=== PATIENT | female | born 1945 | race Caucasian/White ===

== ENCOUNTER 2016-09-13 15:34 | Inpatient (IN) | payer MEDICARE, OTHER ==
[~2016-09-13] VITALS: Ht 162.6 cm; Wt 42.6 kg
[~2016-09-13 15:34] MED LIST: ADVAIR 250-501 EACH INH; ASPIR 8181 MG ORAL; ATENOLOL50 MG ORAL; ATORVASTATIN CA20 MG ORAL; CARDIZEM CD240 MG ORAL; GAS RELIEF 8080 MG PO; PROAIR HFA8.5 GM INH; SENNA8.6 M3 PO; SPIRIVA18 MCG INH; ZITHROMAX250 MG ORAL
[2016-09-13] MEDS ORDERED: Azithromycin 500 MG in NS 275 ML IV ONE (16:00)
[2016-09-13] MEDS: Albuterol ud Inhalation HHN SCH ×3 (16:00→16:30)
[2016-09-13] MEDS ORDERED: Terbutaline 1mg/ml Inj SUBQ ONE (16:00)
[2016-09-13] MEDS: Ipratropium 0.02% Inh Soln 2.5ml UD HHN SCH ×3 (16:00→16:30)
[2016-09-13] MEDS ORDERED: Solu-MEDROL 125mg Inj IVP ONE (16:00)
--- NOTE | 2016-09-13 16:01 | Emergency Room Report ---
History of Present Illness General Chief Complaint: Chest Pain Source: Patient, Medical Record Present Illness HPI 71YOF walk-in with 2-3 days progressive SOB with chest tightness, productive sputum, no improvement with home nebs, breathing machine. States very weak because she cant eat because of SOB. HPI otherwise limited by severity of patient's condition. Allergies: Coded Allergies: PENICILLINS (Unverified Allergy, Intermediate, Hives, 08/05/15) Patient History Past Medical History: HTN, COPD, other - HLD Past Surgical History: none Pertinent Family History: none Social History: Denies: alcohol use, drug use, smoking Now: No Immunizations: UTD Reviewed Nursing Documentation: PMH: Agreed, PSxH: Agreed Nursing Documentation-PMH Past Medical History: No History, Except For Hx Hypertension: Yes Hx Asthma: Yes Hx COPD: Yes - emphesema Hx Cancer: No Hx Gastrointestinal Problems: No Hx Neurological Problems: No Physical Exam Vital Signs Date Time Temp Pulse Resp B/P Pulse Ox O2 Delivery O2 Flow Rate FiO2 09/13/16 15:39 98.4 75 20 149/77 70 Room Air Procedures Critical Care Time Critical Care Time CC time 45 minutes Care for a 71YOF with known COPD with 2-3 days SOB. Hypoxic to 70% in triage DDx includes COPD exac, URI, PNA Patient is now alert and oriented, atraumatic Comprehensive physical exam completed, poor respiratory effort, decreased breath sounds, rhonchi, wheezing Immediately placed on BIPAP with nebs, solumedrol, Iv MG, terbutaline Empiric Abx given Might require intubation EKG reveals NSR Physician spent 45 minutes of direct critical care time monitoring patient's respiratory, cardiac and neurological status, reassessment, review of imaging, labs and discussion with attending hospitalist. Does not include procedures Medical Decision Making Medicare Attestation I Taran Chew MD hereby attest that the medical record entry for date of service, 05/11/16 accurately reflects signatures/notations that I made in my capacity as MD when I treated/diagnosed the above listed Medicare beneficiary. I attest that this information is true, accurate and complete to the best of my knowledge. I understand that any falsification, omission, or concealment of material fact may subject me to administrative, civil, or criminal liability. This patient warrants hospital admission for extreme of age and has a condition that cannot be treated as outpatient. Diagnostic Impression: Primary Impression: COPD with acute exacerbation Additional Impression: PNA (pneumonia) Qualified Codes: J18.9 - Pneumonia, unspecified organism ER Course Labs: Leuks 16 k. H&H stable. Elevated BNP. CXR: no obvious PNA Blood Cx sent Abx given Patient significant improved on Bipap with meds Endorsed to Dr Madison at 549pm for [facility] admission EKG Diagnostic Results Rate: normal, other - biatrial enlargemnt Rhythm: NSR ST Segments: no acute changes ASA given to the pt in ED: No Rhythm Strip Diag. Results EP Interpretation: yes Rate: 73 Rhythm: NSR, no PVC's, no ectopy Chest X-Ray Diagnostic Results EP Interpretation: Yes Findings: no consolidation, no effusion, no pneumothorax, no acute cardiopulmonary disease Number of Views: 1 Last Vital Signs Date Time Temp Pulse Resp B/P Pulse Ox O2 Delivery O2 Flow Rate FiO2 09/13/16 15:39 98.4 75 20 149/77 70 Room Air Status: improved Disposition: ADMITTED INPATIENT Condition: Critical TARAN CHEW M.D. Sep 13, 2016 16:01
[2016-09-13 16:11] VITALS: BP 149/77
[2016-09-13] MEDS ORDERED: Azithromycin Inj IV ONE (16:15)
[2016-09-13 16:24] LABS: BASOPHILS % (AUTO) 0.9 % (0.0-2.0); EOSINOPHILS % (AUTO) 0.1 % (0.0-3.0); LYMPHOCYTES % (AUTO) 6.2 % (20.0-45.0); MEAN CORPUSCULAR HEMOGLOBIN 31.9 PG (27.0-31.0); MEAN CORPUSCULAR VOLUME 100 FL (80-99); MEAN PLATELET VOLUME 5.7 FL (6.5-10.1); MONOCYTES % (AUTO) 10.9 % (1.0-10.0); NEUTROPHILS % (AUTO) 81.8 % (45.0-75.0); PLATELET COUNT 321 K/UL (150-450); RED BLOOD COUNT 4.34 M/UL (4.20-5.40); RED CELL DISTRIBUTION WIDTH 15.2 % (11.6-14.8)
[2016-09-13 16:40] LABS: ALANINE AMINOTRANSFERASE 22 U/L (3-33); ALBUMIN/GLOBULIN RATIO 0.8 (1.0-2.7); ANION GAP 16 (5-15); ASPARTATE AMINO TRANSFERASE 30 U/L (5-40); CALCIUM 9.9 mg/dL (8.6-10.2); CARBON DIOXIDE 28 mEQ/L (20-30); CHLORIDE 89 mEQ/L (98-107); CREATININE 0.8 mg/dL (0.5-0.9); HEMOLYSIS 47; SODIUM 133 mEQ/L (135-145); TOTAL PROTEIN 8.1 g/dL (6.6-8.7)
[2016-09-13 16:49] LABS: TROPONIN I < 0.30 ng/mL (<=0.30)
[2016-09-13 16:52] LABS: POTASSIUM 5.1 mEQ/L (3.4-4.9)
[2016-09-13] MEDS ORDERED: cefTRIAXone 1 GM in NS 55 ML IVPB ONE (17:00)
[2016-09-13 17:03] LABS: CKMB 2.4 ng/mL (< 3.8)
[2016-09-13 18:31] VITALS: BP 139/89
[2016-09-13] MEDS: DuoNeb 0.5-3(2.5)mg/3ml neb HHN SCH ×3 (19:00→23:33)
[2016-09-13] MEDS ORDERED: ACETAMINOPHEN120 MG ORAL (19:09)
[2016-09-13] MEDS ORDERED: XANAX0.5 MG ORAL (19:09)
[2016-09-13] MEDS: Atorvastatin 20mg tab ORAL SCH (22:07)
[2016-09-14] VITALS: BP_SYST 118; BP_SYST 125; BP_DIAS 49; BP_DIAS 64
[2016-09-14] MEDS: Solu-MEDROL 40mg Inj IVP SCH ×3 (00:19→15:49)
[2016-09-14] MEDS: DuoNeb 0.5-3(2.5)mg/3ml neb HHN SCH ×6 (03:54→22:38)
[2016-09-14 04:00] VITALS: BP 143/79
[2016-09-14] MEDS ORDERED: Solu-MEDROL 40mg Inj IVP SCH (06:00)
[2016-09-14 08:00] VITALS: BP 125/68
[2016-09-14] MEDS: Diltiazem CD 240mg cap ORAL SCH (08:12)
[2016-09-14] MEDS: Aspirin EC 81mg tab ORAL SCH (08:13)
[2016-09-14 08:48] LABS: MEAN CORPUSCULAR HGB CONC 30.5 G/DL (32.0-36.0); MEAN CORPUSCULAR VOLUME 98 FL (80-99); MEAN PLATELET VOLUME 5.8 FL (6.5-10.1); PLATELET COUNT 363 K/UL (150-450); RED BLOOD COUNT 4.31 M/UL (4.20-5.40); RED CELL DISTRIBUTION WIDTH 14.9 % (11.6-14.8); WHITE BLOOD COUNT 9.2 K/UL (4.8-10.8)
[2016-09-14 09:04] LABS: ANION GAP 13 (5-15); CALCIUM 9.6 mg/dL (8.6-10.2); CARBON DIOXIDE 31 mEQ/L (20-30); CHLORIDE 91 mEQ/L (98-107); HEMOLYSIS 0; MAGNESIUM 2.3 mg/dL (1.7-2.5); POTASSIUM 4.9 mEQ/L (3.4-4.9); SODIUM 135 mEQ/L (135-145)
[2016-09-14 09:26] LABS: BAND NEUTROPHILS % (MANUAL) 0 % (0-8); BASOPHILS % (MANUAL) 0 % (0-2); EOSINOPHILS % (MANUAL) 0 % (0-3); LYMPHOCYTES % (MANUAL) 5 % (20-45); NEUTROPHILS % (MANUAL) 92 % (45-75); PLATELET ESTIMATE ADEQUATE; PLATELET MORPHOLOGY NORMAL; TOTAL CELLS COUNTED 100
[2016-09-14 09:27] LABS: ANISOCYTOSIS 1+; HYPOCHROMASIA 1+
[2016-09-14] MEDS: Acetaminophen 500mg (ES) tab ORAL PRN ×2 (09:30→21:29)
[2016-09-14] MEDS ORDERED: NS 275ml ONE (10:15)
[2016-09-14] MEDS ORDERED: Tubing IV Secondary IV ONE (10:15)
[2016-09-14 12:00] VITALS: BP 143/79
--- NOTE | 2016-09-14 12:11 | Diagnostic Imaging Report ---
Indications: Shortness of breath Technique: Portable AP chest Findings: Comparison: 08/05/2015 Lungs are symmetrically hyperinflated but clear. Persistent blunting of the costophrenic angles likely secondary to diaphragmatic flattening. Cardiac silhouette remains enlarged. Central pulmonary arteries remain enlarged. Peripheral pulmonary vasculature remains within normal limits. Aortic arch calcification, bilateral breast implants again noted. IMPRESSION: No evidence of acute cardiopulmonary disease, unchanged Stable chronic changes as described including COPD
[2016-09-14] MEDS: ALPRAZolam 0.25mg tab ORAL PRN ×2 (12:30→21:29)
--- NOTE | 2016-09-14 13:28 | History & Physical ---
History and Physical History & Physicial dict COPD exac resp failure TARAN GILBERT Sep 14, 2016 13:28
[2016-09-14] MEDS: FLUoxetine 10mg cap ORAL SCH (14:09)
[2016-09-14 16:00] VITALS: BP 119/65
--- NOTE | 2016-09-14 18:48 | History and Physical Report ---
DATE OF ADMISSION: 09/13/2016 HISTORY OF PRESENT ILLNESS: The patient is a very pleasant 71-year-old woman, who came to the emergency department from home because of increasing shortness of breath and cough with yellow sputum. She had no high fever. She was evaluated and found to have chronic obstructive pulmonary disease exacerbation and pneumonia. Admission was arranged. The patient continues to smoke four to five cigarettes per day. She smoked for most of her adult life. She is aware that she has emphysema. PAST MEDICAL HISTORY: Emphysema, hypertension, hyperlipidemia, depression, anxiety, and possible asthma. She has no history of cancer. MEDICATIONS: Reviewed and reconciled. ALLERGIES: Allergy to penicillin. REVIEW OF SYSTEMS: Otherwise unremarkable. PHYSICAL EXAMINATION: GENERAL: The patient is alert and appears mildly short of breath. VITAL SIGNS: Her room air saturation is 70% when she presented, but now much improved on oxygen. The other vital signs are normal. HEENT: The head is normocephalic. She looks malnourished and chronically ill. NECK: No jugular venous distention. CHEST: Decreased breath sounds. CARDIAC: Rhythm is regular. ABDOMEN: Soft and nontender. EXTREMITIES: No edema. LABORATORY DATA: Laboratory studies show potassium is elevated at 5.1. Troponin is negative. Natriuretic peptide is elevated at 3500. Blood sugar 149. White count 16,000. Platelets are normal. Hemoglobin is 13.8. A chest x-ray shows chronic changes of chronic obstructive pulmonary disease with some blunting of the costophrenic angles and hyperinflation. There is no acute infiltrate. IMPRESSION: 1. Chronic obstructive pulmonary disease exacerbation. 2. Acute and chronic respiratory failure, hypoxic type. 3. Hypertension. 4. Hyperlipidemia. 5. Depression and anxiety. PLAN: The patient will be treated with antibiotic steroids and bronchodilators. She was on BiPAP overnight, but has improved and is on oxygen at this time. As her condition stabilizes, we will change to oral medications and plan for discharge home. I advised her not to smoke any more. Murali Madison M.D. DR: FRANCY JOB#: [id number] CC: Murali Madison M.D.; Fax#: [phone] [facility]
[2016-09-14 20:53] VITALS: BP 133/65
[2016-09-14] MEDS: Atorvastatin 20mg tab ORAL SCH (21:28)
[2016-09-15] VITALS: BP 117/68
[2016-09-15] MEDS: DuoNeb 0.5-3(2.5)mg/3ml neb HHN SCH ×6 (03:36→23:00)
[2016-09-15 04:00] VITALS: BP 125/69
[2016-09-15 05:17] LABS: MEAN CORPUSCULAR HEMOGLOBIN 30.5 PG (27.0-31.0); MEAN CORPUSCULAR VOLUME 99 FL (80-99); MEAN PLATELET VOLUME 5.8 FL (6.5-10.1); PLATELET COUNT 351 K/UL (150-450); RED BLOOD COUNT 3.87 M/UL (4.20-5.40); RED CELL DISTRIBUTION WIDTH 15.1 % (11.6-14.8); WHITE BLOOD COUNT 14.5 K/UL (4.8-10.8)
[2016-09-15 05:36] LABS: ANION GAP 10 (5-15); CALCIUM 9.1 mg/dL (8.6-10.2); CARBON DIOXIDE 28 mEQ/L (20-30); CHLORIDE 96 mEQ/L (98-107); CREATININE 0.9 mg/dL (0.5-0.9); HEMOLYSIS 2; POTASSIUM 5.3 mEQ/L (3.4-4.9); SODIUM 134 mEQ/L (135-145)
[2016-09-15 08:00] VITALS: BP 127/73
[2016-09-15 08:00] LABS: BAND NEUTROPHILS % (MANUAL) 1 % (0-8); BASOPHILS % (MANUAL) 0 % (0-2); EOSINOPHILS % (MANUAL) 0 % (0-3); LYMPHOCYTES % (MANUAL) 2 % (20-45); NEUTROPHILS % (MANUAL) 94 % (45-75); PLATELET ESTIMATE ADEQUATE; PLATELET MORPHOLOGY NORMAL; TOTAL CELLS COUNTED 100
[2016-09-15 08:01] LABS: ANISOCYTOSIS 1+
[2016-09-15] MEDS: Solu-MEDROL 40mg Inj IVP SCH ×2 (08:27)
[2016-09-15] MEDS: Aspirin EC 81mg tab ORAL SCH (08:27)
[2016-09-15] MEDS: FLUoxetine 10mg cap ORAL SCH (08:27)
[2016-09-15] MEDS: Diltiazem CD 240mg cap ORAL SCH (08:38)
[2016-09-15 12:00] VITALS: BP 135/80
--- NOTE | 2016-09-15 12:22 | Diagnostic Imaging Report ---
Indication: Dyspnea Technique: One view of the chest Comparison: 09/13/2016 Findings: Lungs are slightly hyperinflated. There linear markings at the left lung base may reflect some scarring or atelectasis. Blunting of the left costophrenic sulcus is probably on the basis of chronic scarring, but small effusion not completely excludable. The lungs and pleural spaces otherwise clear. Again demonstrated are bilateral calcified breast implants. Impression: Doubt acute process. Small left pleural effusion cannot be completely ruled out COPD changes Other findings as noted
--- NOTE | 2016-09-15 12:40 | Pulmonology Progress Note ---
Assessment/Plan Assessment/Plan 1. Chronic obstructive pulmonary disease exacerbation. 2. Acute and chronic respiratory failure, hypoxic type. 3. Hypertension. 4. Hyperlipidemia. 5. Depression and anxiety. less SOB, feels better no distress dc tele ambulate po steroids dc plan tomorrow Subjective Respiratory: Reports: productive cough Allergies: Coded Allergies: PENICILLINS (Unverified Allergy, Intermediate, Hives, 08/05/15) Objective Last 24 Hour Vital Signs Date Time Temp Pulse Resp B/P Pulse Ox O2 Delivery O2 Flow Rate FiO2 09/15/16 12:00 97.3 80 22 135/80 95 Nasal Cannula 2.0 09/15/16 11:13 79 16 95 Nasal Cannula 2.0 28 09/15/16 11:08 78 16 95 Nasal Cannula 2.0 28 09/15/16 08:38 89 127/73 09/15/16 08:37 89 127/73 09/15/16 08:00 92 09/15/16 08:00 97.3 89 20 127/73 91 Nasal Cannula 2.0 09/15/16 07:20 77 16 96 Nasal Cannula 2.0 28 09/15/16 07:15 Nasal Cannula 2.0 28 09/15/16 07:15 76 16 96 Nasal Cannula 2.0 28 09/15/16 07:15 96 Nasal Cannula 2.0 28 09/15/16 04:07 77 09/15/16 04:00 97.7 70 20 125/69 98 Nasal Cannula 3.0 09/15/16 03:52 81 20 96 Nasal Cannula 2.0 28 09/15/16 03:36 79 16 95 Nasal Cannula 2.0 28 09/15/16 00:00 98.0 74 20 117/68 98 Nasal Cannula 3.0 09/14/16 23:53 81 09/14/16 22:44 87 20 97 Nasal Cannula 2.0 28 09/14/16 22:38 85 16 94 Nasal Cannula 2.0 28 09/14/16 22:28 97.7 09/14/16 20:53 97.7 83 20 133/65 92 Nasal Cannula 3.0 09/14/16 20:01 83 09/14/16 19:27 85 20 96 Nasal Cannula 2.0 28 09/14/16 19:07 Nasal Cannula 2.0 28 09/14/16 19:07 80 16 93 Nasal Cannula 2.0 28 09/14/16 19:07 93 Nasal Cannula 2.0 28 09/14/16 16:00 65 09/14/16 16:00 97.7 67 20 119/65 94 Nasal Cannula 2.0 09/14/16 15:10 76 16 95 Nasal Cannula 2.0 28 09/14/16 15:10 80 20 96 Nasal Cannula 2.0 28 Intake and Output 09/14/16 09/15/16 19:00 07:00 Intake Total 1420 ml 250 ml Balance 1420 ml 250 ml Intake Oral 1320 ml 250 ml IV Total 100 ml # Voids 4 5 General Appearance: no acute distress Respiratory/Chest: lungs clear, decreased breath sounds Cardiovascular: normal rate Microbiology Date/Time Source Procedure Growth Status 09/13/16 16:00 Blood Blood Culture - Preliminary NO GROWTH AFTER 24 HOURS Resulted 09/13/16 15:45 Blood Blood Culture - Preliminary NO GROWTH AFTER 24 HOURS Resulted Laboratory Tests 09/15/16 03:55: White Blood Count 14.5#H, Red Blood Count 3.87L, Hemoglobin 11.8L, Hematocrit 38.1, Mean Corpuscular Volume 99, Mean Corpuscular Hemoglobin 30.5, Mean Corpuscular Hemoglobin Concent 31.0L, Red Cell Distribution Width 15.1H, Platelet Count 351, Mean Platelet Volume 5.8L, Neutrophils (%) (Auto) , Lymphocytes (%) (Auto) , Monocytes (%) (Auto) , Eosinophils (%) (Auto) , Basophils (%) (Auto) , Differential Total Cells Counted 100, Neutrophils % ( Manual) 94H, Lymphocytes % (Manual) 2L, Monocytes % (Manual) 3, Eosinophils % ( Manual) 0, Basophils % (Manual) 0, Band Neutrophils 1, Platelet Estimate Adequate, Platelet Morphology Normal, Anisocytosis 1+, Sodium Level 134L, Potassium Level 5.3H, Chloride Level 96L, Carbon Dioxide Level 28, Anion Gap 10 , Blood Urea Nitrogen 41H, Creatinine 0.9, Estimat Glomerular Filtration Rate , Glucose Level 141H, Calcium Level 9.1 Current Medications Medications (Trade) Dose Ordered Sig/Sandeep Route PRN Reason Start Time Stop Time Status Last Admin Dose Admin Acetaminophen (Tylenol) 500 mg Q4H PRN ORAL Mild Pain/Temp > 100.5 09/13/16 19:00 10/13/16 18:59 09/14/16 21:29 Albuterol/ Ipratropium 3 ml 3 ml Q4HRT HHN 09/13/16 19:00 09/18/16 18:59 09/15/16 11:08 Alprazolam (Xanax) 0.25 mg Q6H PRN ORAL For Anxiety 09/14/16 12:30 09/21/16 12:29 09/14/16 21:29 Aspirin (Ecotrin) 81 mg DAILY ORAL 09/14/16 09:00 10/14/16 08:59 09/15/16 08:27 Atenolol (Tenormin) 50 mg DAILY ORAL 09/14/16 09:00 10/14/16 08:59 09/15/16 08:37 Atorvastatin Calcium (Lipitor) 20 mg BEDTIME ORAL 09/13/16 21:00 10/13/16 20:59 09/14/16 21:28 Ceftriaxone Sodium/Sodium Chloride (Rocephin/Sodium Chloride) 100 ml @ 220.049 mls/hr Q24H IVPB 09/14/16 09:00 09/21/16 08:59 09/15/16 08:28 Diltiazem HCl (Cardizem CD) 240 mg DAILY ORAL 09/14/16 09:00 10/14/16 08:59 09/15/16 08:38 Fluoxetine HCl (PROzac) 10 mg DAILY ORAL 09/14/16 12:00 10/14/16 11:59 09/15/16 08:27 Methylprednisolone Sodium Succinate (Solu-MEDROL) 40 mg Q8H IVP 09/14/16 00:00 10/14/16 00:00 09/15/16 08:27 Nicotine (Nicoderm) 1 patch Q24H TDERMAL 09/14/16 12:00 10/14/16 11:59 09/15/16 12:05 TARAN GILBERT Sep 15, 2016 12:40
[2016-09-15] MEDS: ALPRAZolam 0.25mg tab ORAL PRN ×2 (14:37→21:58)
[2016-09-15] MEDS: Acetaminophen 500mg (ES) tab ORAL PRN ×2 (14:39→21:58)
[2016-09-15] MEDS ORDERED: Artificial Tears 1.4% Op Soln BOTH EYES PRN (15:45)
[2016-09-15 16:00] VITALS: BP 125/69
[2016-09-15] MEDS ORDERED: PredniSONE 20mg tab ORAL SCH (18:00)
[2016-09-15 20:00] VITALS: BP 125/102
[2016-09-15] MEDS: Atorvastatin 20mg tab ORAL SCH (20:36)
[2016-09-15] MEDS ORDERED: Acetaminophen 500mg (ES) tab ORAL PRN (23:00)
[2016-09-16] MEDS ORDERED: ALPRAZolam 0.25mg tab ORAL PRN (00:30)
[2016-09-16] MEDS: DuoNeb 0.5-3(2.5)mg/3ml neb HHN SCH ×2 (03:00→07:00)
[2016-09-16 05:08] LABS: MEAN CORPUSCULAR HEMOGLOBIN 30.2 PG (27.0-31.0); MEAN CORPUSCULAR HGB CONC 30.9 G/DL (32.0-36.0); MEAN CORPUSCULAR VOLUME 98 FL (80-99); MEAN PLATELET VOLUME 5.9 FL (6.5-10.1); PLATELET COUNT 348 K/UL (150-450); RED BLOOD COUNT 4.04 M/UL (4.20-5.40); RED CELL DISTRIBUTION WIDTH 14.6 % (11.6-14.8); WHITE BLOOD COUNT 13.3 K/UL (4.8-10.8)
[2016-09-16 05:33] LABS: ALANINE AMINOTRANSFERASE 99 U/L (3-33); ALBUMIN/GLOBULIN RATIO 0.8 (1.0-2.7); ANION GAP 10 (5-15); ASPARTATE AMINO TRANSFERASE 60 U/L (5-40); CALCIUM 9.2 mg/dL (8.6-10.2); CARBON DIOXIDE 30 mEQ/L (20-30); CHLORIDE 95 mEQ/L (98-107); CREATININE 0.9 mg/dL (0.5-0.9); HEMOLYSIS 2; POTASSIUM 5.2 mEQ/L (3.4-4.9); SODIUM 135 mEQ/L (135-145); TOTAL PROTEIN 6.4 g/dL (6.6-8.7)
[2016-09-16 08:00] VITALS: BP 131/70
[2016-09-16] MEDS ORDERED: Artificial Tears 1.4% Op Soln BOTH EYES PRN (08:00)
[2016-09-16 08:18] VITALS: BP 133/67
[2016-09-16] MEDS ORDERED: PREDNISONE20 MG ORAL (08:44)
[2016-09-16] MEDS ORDERED: LEVAQUIN250 M1 ORAL (08:44)
[2016-09-16] MEDS ORDERED: PredniSONE 20mg tab ORAL SCH (09:00)
[2016-09-16] MEDS ORDERED: Diltiazem CD 240mg cap ORAL SCH (09:00)
[2016-09-16] MEDS ORDERED: FLUoxetine 10mg cap ORAL SCH (09:00)
[2016-09-16] MEDS ORDERED: Aspirin EC 81mg tab ORAL SCH (09:00)
--- NOTE | 2016-09-16 16:18 | Cardiology Report ---
APPROVED REPORT EKG Measurement Heart [id number] IN [id number] Normal sinus rhythm Biatrial enlargement Nonspecific ST abnormality Abnormal ECG
[2016-09-16] MEDS ORDERED: Atorvastatin 20mg tab ORAL SCH (21:00)
--- NOTE | 2016-09-17 13:34 | Discharge Summary ---
Discharge Summary Hospital Course Date of Admission Sep 13, 2016 at 17:35 Date of Discharge Sep 16, 2016 at 11:00 Admitting Diagnosis copd exacebration HPI Mandy Jung is a 71 year old female who was admitted on Sep 13, 2016 at 17: 35 for Chronic Obstructive Pulmonary Disease Exacerbation Hospital Course job #[id number] Discharge Discharge Disposition Patient was discharged to Home () Discharge Diagnoses: Apoorva Oquendo NP Sep 17, 2016 13:34
--- NOTE | 2016-09-18 03:17 | Discharge Summary 2 SIG ---
DATE OF ADMISSION: 09/13/2016 DATE OF DISCHARGE: 09/16/2016 BRIEF HOSPITAL COURSE: The patient is a 71-year-old female, who came to the emergency room from home secondary to increased shortness of breath and cough with yellow sputum with no improvement in home nebulization and treatments. On evaluation at ED, laboratories showed leukocytosis. Chest x-ray showed chronic changes of chronic obstructive pulmonary disease with some blunting of the costophrenic angles and hyperinflation. There was no acute infiltrate. At ED, she was started initially on BiPAP and was admitted to [facility]. The BNP was elevated to 3500. Troponin was negative. She was on BiPAP overnight and improved and was switched to nasal cannula. She was given IV Rocephin and Solu-Medrol intravenous push. Steroid was switched to p.o. She was then transferred to medical floor and following day was discharged home with less shortness of breath and no distress. FINAL DIAGNOSES: 1. Dleeo-ut-dwpzcac respiratory failure, hypoxic type. 2. Fhevb-fw-njtfeqf obstructive pulmonary disease exacerbation. 3. Hypertension. 4. Hyperlipidemia. 5. Depression and anxiety. Murali Madison M.D. I have been assigned to dictate discharge summary on this account and I was not involved in the patient's management. Apoorva Oquendo N.P. DR: GELY JOB#: [id number] CC: AMPARO
== END 2016-09-16 11:00 | disposition home or self-care (01) | DRG 190 ==
LOC: EMR 15:50 → 2W 17:35 → EDBEDREQ 17:41
PROC: 5A09357 Assistance with Respiratory Ventilation, Less than 24 Consecutive Hours, Continuous Positive Airway Pressure (ICD-10-PCS; principal; 2016-09-13)
DX: J44.1 Chronic obstructive pulmonary disease with (acute) exacerbation (principal); J96.21 Acute and chronic respiratory failure with hypoxia; I10 Essential (primary) hypertension; E78.5 Hyperlipidemia, unspecified; F41.8 Other specified anxiety disorders; Z88.0 Allergy status to penicillin; F17.200 Nicotine dependence, unspecified, uncomplicated
CPT/HCPCS: 36415; 71010; 71020; 80048; 80053; 82550; 82553; 83735; 83880; 84484; 85007; 85025; 87040; 93005; 94640; 94760; J7620

== ENCOUNTER 2017-01-31 12:22 | Inpatient (IN) | payer MEDICARE, OTHER ==
[~2017-01-31] VITALS: Ht 162.6 cm; Wt 47.2 kg
[~2017-01-31 12:22] MED LIST changes: +ACETAMINOPHEN120 MG ORAL; +LEVAQUIN250 M1 ORAL; +PREDNISONE20 MG ORAL; +XANAX0.5 MG ORAL
[2017-01-31 12:25] VITALS: BP 176/88
--- NOTE | 2017-01-31 12:39 | Emergency Room Report ---
History of Present Illness General Chief Complaint: Upper Respiratory Illness Source: EMS Present Illness HPI 72 yo M F with history of COPD, current smoker, PVD p/w SOB for 1 week. SOB occurs both at rest and on exertion. +productive cough with clear sputum, Denies chest pain. On home O2, 2L 24 hours/day. Has been using nebulizer at home 2x/day minimal relief. No recent steroid use. Pt states that this episode is similar to other episodes of COPD exacerbation. Denies fever, chills. Denies sick contacts or recent travel. Patient denies history of ICU admissions, intubations. Denies history of PE/DVT, no recent surgeries, prolonged immobilization, use of OCPs/HRT. Allergies: Coded Allergies: PENICILLINS (Unverified Allergy, Intermediate, Hives, 08/05/15) Patient History Past Medical History: see triage record Past Surgical History: other - bypass graft for pvd Pertinent Family History: none Social History: Reports: smoking Reviewed Nursing Documentation: PMH: Agreed, PSxH: Agreed Nursing Documentation-PMH Past Medical History: No History, Except For Hx Cardiac Problems: Yes - aortic bypass surgery Hx Hypertension: Yes Hx Asthma: Yes Hx COPD: Yes Hx Cancer: No Hx Gastrointestinal Problems: No Hx Neurological Problems: Yes - ANXIETY Physical Exam Vital Signs Date Time Temp Pulse Resp B/P (MAP) Pulse Ox O2 Delivery O2 Flow Rate FiO2 01/31/17 12:07 94 20 149/87 97 Non-Rebreather 10.0 Sp02 EP Interpretation: abnormal - 88 on RA, 99 3L O2 General Appearance: normal inspection, well appearing, no apparent distress, alert, GCS 15, non-toxic Head: normocephalic, atraumatic Eyes: bilateral eye normal inspection, bilateral eye PERRL, bilateral eye EOMI ENT: normal ENT inspection, normal pharynx, normal voice, moist mucus membranes Neck: normal inspection, full range of motion, supple Respiratory: respiratory distress, other - Respiratory distress, speaking in 3- 4 sentences, decreased breath sounds bilaterally, retracting,, chest symmetrical Cardiovascular #1: normal inspection, regular rate, rhythm, normal capillary refill Gastrointestinal: normal inspection, non tender, soft, non-distended, no guarding Musculoskeletal: normal inspection, back normal, normal range of motion, non- tender Neurologic: normal inspection, alert, oriented x3, responsive, motor strength/ tone normal, sensory intact, normal gait, speech normal Psychiatric: normal inspection, judgement/insight normal, memory normal Skin: normal inspection, normal color, no rash, warm/dry, well hydrated, normal turgor Procedures Critical Care Time Critical Care Time 35 minutes of CC time 72 yo F with copd exacerbation / resp failure VS:tachypnea/hypoxia Airway patent. nebs, steroids, BIPAP/CPAP, ativan given as patient not tolerating Admit to [facility] CC time also includes review of labs, review of EMR , d/w hospitalist CC could include dosing of pressors, additional Abx CC time does not include procedures Medical Decision Making ER Course 72 yo F with pmhx of COPD p/w SOB for 1 week. DDX: COPD exacerbation, ACS, pneumonia Plan: IV access, playground monitor, O2 nasal cannula, EKG, CXR obtain basic labs including blood gas, troponin, Duonebs, steroids, consider mag Will consider BIPAP for persistent or worsening respiratory status ER Course: Patients respiratory status has been closely monitored in the ED. Patient has been treated with combivent x 3, steroids, antibiotics. IV mag sulfate Patents remains tachypneic and hypoxic on room air. BIPAP attempted however patient not tolerated, cpap started, more duonebs administered Disposition: Patient will be admitted to [facility]. Patient remains critical with vital signs revealing tachypnea and hypoxia. Patient requires close monitoring of respiratory status, and nebulizer treatment. Please note that this Emergency Department Report was dictated using [employer] coordinator technology software, occasionally this can lead to erroneous entry secondary to interpretation by the dictation equipment. Laboratory Tests Test 01/31/17 12:45 White Blood Count 8.5 K/UL (4.8-10.8) Red Blood Count 4.17 M/UL (4.20-5.40) L Hemoglobin 11.7 G/DL (12.0-16.0) L Hematocrit 40.7 % (37.0-47.0) Mean Corpuscular Volume 98 FL (80-99) Mean Corpuscular Hemoglobin 28.0 PG (27.0-31.0) Mean Corpuscular Hemoglobin Concent 28.8 G/DL (32.0-36.0) L Red Cell Distribution Width 15.8 % (11.6-14.8) H Platelet Count 275 K/UL (150-450) Mean Platelet Volume 6.5 FL (6.5-10.1) Neutrophils (%) (Auto) 79.0 % (45.0-75.0) H Lymphocytes (%) (Auto) 14.1 % (20.0-45.0) L Monocytes (%) (Auto) 5.8 % (1.0-10.0) Eosinophils (%) (Auto) 0.1 % (0.0-3.0) Basophils (%) (Auto) 1.1 % (0.0-2.0) Sodium Level 144 mEQ/L (135-145) Potassium Level 4.0 mEQ/L (3.4-4.9) Chloride Level 93 mEQ/L (98-107) L Carbon Dioxide Level 43 mEQ/L (20-30) *H Anion Gap 8 (5-15) Blood Urea Nitrogen 19 mg/dL (7-23) Creatinine 0.7 mg/dL (0.5-0.9) Estimate Glomerular Filtration Rate mL/min (>60) Glucose Level 114 mg/dL (74-106) H Calcium Level 10.1 mg/dL (8.6-10.2) Total Bilirubin 0.3 mg/dL (0.0-1.2) Aspartate Amino Transferase (AST) 17 U/L (5-40) Alanine Aminotransferase (ALT) 15 U/L (3-33) Alkaline Phosphatase 33 U/L (35-104) L Total Creatine Kinase 24 U/L (26-140) L Creatine Kinase MB 2.0 ng/mL (< 3.8) Creatine Kinase MB Relative Index 8.3 Troponin I < 0.30 ng/mL (<=0.30) Pro-B-Type Natriuretic Peptide 2713 pg/mL (0-125) H Total Protein 7.7 g/dL (6.6-8.7) Albumin 3.9 g/dL (3.5-5.2) Globulin 3.8 g/dL Albumin/Globulin Ratio 1.0 (1.0-2.7) EKG Diagnostic Results Rate: normal Rhythm: NSR ST Segments: other - Q waves aVL, multiple PVCs Rhythm Strip Diag. Results EP Interpretation: yes Rate: 96 Rhythm: other - +PVCs Chest X-Ray Diagnostic Results Chest X-Ray Diagnostic Results : # of Views/Limited/Complete: 1 View Indication: Shortness of Breath EP Interpretation: Yes Interpretation: other - possible R sided infiltrate Impression: Other - R sided infiltrate Interpreting ER Provider: Electronically signed by Rinku Flores MD Last Vital Signs Date Time Temp Pulse Resp B/P (MAP) Pulse Ox O2 Delivery O2 Flow Rate FiO2 01/31/17 12:07 94 20 149/87 97 Non-Rebreather 10.0 Disposition: ADMITTED INPATIENT Condition: Serious Rinku Flores M.D. Jan 31, 2017 12:39
[2017-01-31] MEDS ORDERED: Solu-MEDROL 125mg Inj IVP ONE (12:45)
[2017-01-31] MEDS: Ipratropium 0.02% Inh Soln 2.5ml UD HHN SCH ×3 (12:49→14:30)
[2017-01-31] MEDS: Albuterol ud Inhalation HHN SCH ×3 (12:49→14:30)
[2017-01-31 13:06] LABS: BASOPHILS % (AUTO) 1.1 % (0.0-2.0); EOSINOPHILS % (AUTO) 0.1 % (0.0-3.0); LYMPHOCYTES % (AUTO) 14.1 % (20.0-45.0); MEAN CORPUSCULAR HGB CONC 28.8 G/DL (32.0-36.0); MEAN CORPUSCULAR VOLUME 98 FL (80-99); MEAN PLATELET VOLUME 6.5 FL (6.5-10.1); MONOCYTES % (AUTO) 5.8 % (1.0-10.0); PLATELET COUNT 275 K/UL (150-450); RED BLOOD COUNT 4.17 M/UL (4.20-5.40); RED CELL DISTRIBUTION WIDTH 15.8 % (11.6-14.8); WHITE BLOOD COUNT 8.5 K/UL (4.8-10.8)
[2017-01-31 13:16] LABS: TROPONIN I < 0.30 ng/mL (<=0.30)
[2017-01-31 13:19] LABS: ALANINE AMINOTRANSFERASE 15 U/L (3-33); ASPARTATE AMINO TRANSFERASE 17 U/L (5-40); CALCIUM 10.1 mg/dL (8.6-10.2); CHLORIDE 93 mEQ/L (98-107); CREATININE 0.7 mg/dL (0.5-0.9); HEMOLYSIS 24; SODIUM 144 mEQ/L (135-145); TOTAL PROTEIN 7.7 g/dL (6.6-8.7)
[2017-01-31] MEDS ORDERED: MIRTAZAPINE15 M3 ORAL (13:20)
[2017-01-31] MEDS ORDERED: LAMICTAL25 MG ORAL (13:20)
[2017-01-31 13:30] VITALS: BP 158/95
[2017-01-31 13:36] LABS: ANION GAP 8 (5-15)
[2017-01-31 13:40] LABS: CARBON DIOXIDE 43 mEQ/L (20-30)
[2017-01-31 14:30] VITALS: BP 167/91
[2017-01-31] MEDS ORDERED: LORazepam Inj 2mg/ml 1ml IV ONE (14:30)
[2017-01-31] MEDS ORDERED: DuoNeb 0.5-3(2.5)mg/3ml neb HHN SCH (14:30)
[2017-01-31 15:30] VITALS: BP 160/89
[2017-01-31 17:00] VITALS: BP 163/87
[2017-01-31] MEDS ORDERED: LAMOTRIGINE25 M5 PO (17:40)
[2017-01-31] MEDS: DuoNeb 0.5-3(2.5)mg/3ml neb HHN SCH ×2 (19:23→23:14)
--- NOTE | 2017-01-31 19:48 | History & Physical ---
History and Physical History & Physicial [id number] ? PNA COPD exacerbation respiratory failure LEONIDAS BONILLA DO Jan 31, 2017 19:48
[2017-01-31 20:00] VITALS: BP 182/98
[2017-01-31] MEDS: Atorvastatin 20mg tab ORAL SCH (21:03)
[2017-01-31] MEDS: Solu-MEDROL 40mg Inj IVP SCH (21:03)
[2017-01-31 21:58] LABS: ABG PCO2 81.4 mmHg (35.0-45.0)
[2017-01-31 21:59] LABS: ABG ALLEN TEST POSITIVE
[2017-02-01] VITALS (7 sets, daily range): BP systolic 102–175; BP diastolic 61–105
[2017-02-01] MEDS: DuoNeb 0.5-3(2.5)mg/3ml neb HHN SCH ×7 (03:00→23:03)
[2017-02-01] MEDS: Solu-MEDROL 40mg Inj IVP SCH ×3 (05:25→21:10)
--- NOTE | 2017-02-01 05:30 | History and Physical Report ---
DATE OF ADMISSION: 01/31/2017 HISTORY OF PRESENT ILLNESS: This is a 72-year-old female admitted with known history of COPD and current smoker. The patient has been feeling increasing cough and shortness of breath for three or four days, using her nebulizer more frequently without any relief. No nausea, vomiting, or diarrhea. She wears chronic oxygen at home at 2 liters and currently is requiring 4 to 5 liters to maintain saturations greater than 91%. She has had no chest pain, syncope, or presyncope. She came into the emergency room, given antibiotics, nebulizers, and steroids with some improvement. She was initially placed on BiPAP, but currently is on nasal cannula. PAST MEDICAL HISTORY: COPD, aortic bypass, hypertension, and anxiety. SURGICAL HISTORY: Aortic bypass. SOCIAL HISTORY: Current tobacco. No alcohol or drugs. Lives at her home. FAMILY HISTORY: Noncontributory. REVIEW OF SYSTEMS: Previously negative for chest pain. Positive for shortness of breath. No nausea, diarrhea, fever, chills, or weight changes. MEDICATIONS: Her prehospital and present medications reviewed, reconciled, and documented in electronic medical record. PHYSICAL EXAMINATION: GENERAL: At the time of my exam, she is alert, she is oriented, she is in mild respiratory distress. She is currently afebrile. VITAL SIGNS: Pulse is 100 and respirations 19. She is 91% on 4 L. HEENT: Normocephalic and atraumatic. NECK: Supple without lymphadenopathy or thyromegaly. LUNGS: Decreased with diffuse rhonchi and no wheezes. HEART: Regular rhythm without murmur. ABDOMEN: Soft and nontender. Positive bowel sounds. EXTREMITIES: No edema. NEUROLOGIC: No focal neurological deficits present. Cranial nerves are intact. SKIN: No skin rashes. No lesions are present. PSYCHIATRIC: Mildly anxious. LABORATORY DATA: White count 8.5, hemoglobin 11.7, and platelets 275,000. Her sodium is 144, potassium 4, chloride 93, bicarb 23, BUN 19, and creatinine 0.7. Glucose is 114. BNP is 2713. Troponin is negative. No urinalysis was obtained. No ABG was obtained. Chest x-ray is visible per the emergency room records. Chest x-ray with possible right-sided pneumonia. ASSESSMENT: 1. Chronic obstructive pulmonary disease exacerbation. 2. Pneumonia. 3. Respiratory failure, requiring BiPAP. 4. Bronchospasm. 5. Hypertension. 6. Depression. PLAN: Plan for the patient, currently on Levaquin, will continue. Continue on steroids 40 mg intravenous q.8 h. Nebulizer treatments every four hours [id number] as DuoNeb. BiPAP 12/5 nightly and as needed distress. Follow sputum cultures and urine cultures. Titrate O2 and maintain saturations greater than 91%. Resume pre-hospital medications. Aspiration precautions. We will continue to follow the patient. We will order a baseline blood gas at this time. Krystle Eddy D.O. DR: ISAIAH JOB#: [id number] CC:
[2017-02-01 07:30] LABS: ABG BASE EXCESS 14.7; ABG PCO2 83.5 mmHg (35.0-45.0)
[2017-02-01 07:31] LABS: ABG ALLEN TEST POSITIVE
[2017-02-01] MEDS ORDERED: ALPRAZolam 0.5mg tab ORAL SCH (09:00)
[2017-02-01 09:02] LABS: MEAN CORPUSCULAR HEMOGLOBIN 28.5 PG (27.0-31.0); MEAN CORPUSCULAR HGB CONC 29.4 G/DL (32.0-36.0); MEAN CORPUSCULAR VOLUME 97 FL (80-99); MEAN PLATELET VOLUME 6.9 FL (6.5-10.1); PLATELET COUNT 277 K/UL (150-450); RED BLOOD COUNT 3.95 M/UL (4.20-5.40); RED CELL DISTRIBUTION WIDTH 15.9 % (11.6-14.8); WHITE BLOOD COUNT 6.6 K/UL (4.8-10.8)
[2017-02-01] MEDS: Diltiazem CD 240mg cap ORAL SCH (09:12)
[2017-02-01] MEDS: Aspirin EC 81mg tab ORAL SCH (09:12)
--- NOTE | 2017-02-01 09:12 | Pulmonology Progress Note ---
Assessment/Plan Assessment/Plan 1. Chronic obstructive pulmonary disease exacerbation. 2. Pneumonia. 3. Respiratory failure, requiring BiPAP. 4. Bronchospasm. 5. Hypertension. 6. Depression. ABG not improved she desires DNR/DNI cont abx, O2, steroids, HHN refusing BiPAP Subjective Constitutional: Denies: fever Respiratory: Reports: shortness of breath Allergies: Coded Allergies: PENICILLINS (Unverified Allergy, Intermediate, Hives, 08/05/15) Objective Last 24 Hour Vital Signs Date Time Temp Pulse Resp B/P (MAP) Pulse Ox O2 Delivery O2 Flow Rate FiO2 02/01/17 08:00 98.2 83 20 138/75 94 Nasal Cannula 3.0 02/01/17 07:30 119 20 98 Nasal Cannula 4.0 36 02/01/17 07:25 99 20 96 Nasal Cannula 4.0 36 02/01/17 04:00 97.8 91 20 158/93 99 Nasal Cannula 4.0 02/01/17 04:00 95 02/01/17 03:24 Nasal Cannula 4.0 36 02/01/17 03:24 Nasal Cannula 4.0 36 02/01/17 00:00 98.2 104 24 175/105 95 Nasal Cannula 4.0 02/01/17 00:00 95 01/31/17 23:27 102 20 98 Nasal Cannula 4.0 36 01/31/17 23:16 102 20 98 Nasal Cannula 4.0 28 01/31/17 20:00 98.2 108 24 182/98 96 Nasal Cannula 4.0 01/31/17 20:00 104 01/31/17 20:00 40 01/31/17 19:26 100 19 96 Nasal Cannula 2.0 28 01/31/17 17:25 102 23 93 01/31/17 17:00 97.8 103 18 163/87 92 01/31/17 16:31 99 22 134/85 96 Bi-pap 40 01/31/17 15:30 102 25 160/89 97 Bi-pap 01/31/17 15:19 101 31 100 Bi-pap 40 01/31/17 14:57 101 21 96 Bi-pap 40 01/31/17 14:57 102 24 96 Bi-pap 40 01/31/17 14:33 104 27 94 Facial 40 01/31/17 14:30 104 21 94 Bi-pap 40 01/31/17 14:30 104 25 88 Nasal Cannula 2.0 01/31/17 14:30 97.3 99 21 167/91 94 Bi-pap 2.0 40 01/31/17 13:30 98 25 158/95 99 Nasal Cannula 3.0 01/31/17 13:27 101 23 100 Nasal Cannula 2.0 01/31/17 13:24 101 23 100 Room Air 01/31/17 12:54 96 20 96 Nasal Cannula 2.0 01/31/17 12:25 98 32 Nasal Cannula 3.0 01/31/17 12:25 97.6 98 32 176/88 96 Nasal Cannula 3.0 01/31/17 12:07 94 20 149/87 97 Non-Rebreather 10.0 Intake and Output 02/01/17 02/02/17 19:00 07:00 Intake Total 360 ml Balance 360 ml Intake Oral 360 ml General Appearance: no acute distress, cachetic HEENT: atraumatic Respiratory/Chest: lungs clear, decreased breath sounds Cardiovascular: normal rate Abdomen: soft, non tender Extremities: no cyanosis, no clubbing, no edema Laboratory Tests 01/31/17 12:45: White Blood Count 8.5, Red Blood Count 4.17L, Hemoglobin 11.7L, Hematocrit 40.7 , Mean Corpuscular Volume 98, Mean Corpuscular Hemoglobin 28.0, Mean Corpuscular Hemoglobin Concent 28.8L, Red Cell Distribution Width 15.8H, Platelet Count 275, Mean Platelet Volume 6.5, Neutrophils (%) (Auto) 79.0H, Lymphocytes (%) (Auto) 14.1L, Monocytes (%) (Auto) 5.8, Eosinophils (%) (Auto) 0.1, Basophils (%) (Auto) 1.1, Sodium Level 144, Potassium Level 4.0, Chloride Level 93L, Carbon Dioxide Level 43*H, Anion Gap 8, Blood Urea Nitrogen 19, Creatinine 0.7, Estimat Glomerular Filtration Rate , Glucose Level 114H, Calcium Level 10.1, Total Bilirubin 0.3, Aspartate Amino Transf (AST/SGOT) 17, Alanine Aminotransferase (ALT/SGPT) 15, Alkaline Phosphatase 33L, Total Creatine Kinase 24L, Creatine Kinase MB 2.0, Creatine Kinase MB Relative Index 8.3, Troponin I < 0.30, Pro-B-Type Natriuretic Peptide 2713H, Total Protein 7.7 , Albumin 3.9, Globulin 3.8, Albumin/Globulin Ratio 1.0 01/31/17 21:50: Arterial Blood pH 7.369, Arterial Blood Partial Pressure CO2 81.4*H, Arterial Blood Partial Pressure O2 79.2, Arterial Blood HCO3 45.9H, Arterial Blood Oxygen Saturation 94.3, Arterial Blood Base Excess 17.0, Edwardo Test Positive 02/01/17 07:20: Arterial Blood pH 7.330L, Arterial Blood Partial Pressure CO2 83.5*H, Arterial Blood Partial Pressure O2 73.5L, Arterial Blood HCO3 43.8H, Arterial Blood Oxygen Saturation 93.5, Arterial Blood Base Excess 14.7, Edwardo Test Positive 02/01/17 08:15: White Blood Count 6.6, Red Blood Count 3.95L, Hemoglobin 11.2L, Hematocrit 38.2 , Mean Corpuscular Volume 97, Mean Corpuscular Hemoglobin 28.5, Mean Corpuscular Hemoglobin Concent 29.4L, Red Cell Distribution Width 15.9H, Platelet Count 277, Mean Platelet Volume 6.9, Neutrophils (%) (Auto) , Lymphocytes (%) (Auto) , Monocytes (%) (Auto) , Eosinophils (%) (Auto) , Basophils (%) (Auto) , Sodium Level [Pending], Potassium Level [Pending], Chloride Level [Pending], Carbon Dioxide Level [Pending], Blood Urea Nitrogen [ Pending], Creatinine [Pending], Estimat Glomerular Filtration Rate [Pending], Glucose Level [Pending], Calcium Level [Pending], Troponin I [Pending], Pro-B- Type Natriuretic Peptide [Pending], Neutrophils % (Manual) [Pending], Lymphocytes % (Manual) [Pending], Platelet Estimate [Pending], Platelet Morphology [Pending] Current Medications Medications (Trade) Dose Ordered Sig/Sandeep Route PRN Reason Start Time Stop Time Status Last Admin Dose Admin Acetaminophen (Tylenol) 650 mg Q6H PRN ORAL Mild Pain/Temp > 100.5 02/01/17 07:30 03/03/17 07:29 Albuterol/ Ipratropium (DuoNeb 0.5-3(2.5)mg/3ml) 3 ml Q4HRT HHN 01/31/17 19:00 02/05/17 18:59 02/01/17 07:42 Alprazolam (Xanax) 0.5 mg Q8HR ORAL 02/01/17 09:00 02/08/17 08:59 Aspirin (Ecotrin) 81 mg DAILY ORAL 02/01/17 09:00 03/03/17 08:59 Atenolol (Tenormin) 50 mg DAILY ORAL 02/01/17 09:00 03/03/17 08:59 Atorvastatin Calcium (Lipitor) 20 mg BEDTIME ORAL 01/31/17 21:00 03/02/17 20:59 01/31/17 21:03 Clonidine HCl (Catapres) 0.1 mg Q4H PRN ORAL SBP>160 02/01/17 07:30 03/03/17 07:29 Diltiazem HCl (Cardizem CD) 240 mg DAILY ORAL 02/01/17 09:00 03/03/17 08:59 Lamotrigine (LaMICtal) 25 mg DAILY ORAL 02/01/17 09:00 03/03/17 08:59 Levofloxacin 100 ml @ 100 mls/hr Q24H IVPB 02/01/17 15:00 02/08/17 14:59 Methylprednisolone Sodium Succinate (Solu-MEDROL) 40 mg EVERY 8 HOURS IVP 01/31/17 22:00 03/02/17 21:59 02/01/17 05:25 Mirtazapine (Remeron) 15 mg BEDTIME ORAL 01/31/17 21:00 03/02/17 20:59 01/31/17 21:03 Tiotropium [place] (Spiriva Inhaler) 1 puff DAILY INH 02/01/17 09:00 03/03/17 08:59 TARAN GILBERT Feb 01, 2017 09:12
[2017-02-01 09:16] LABS: TROPONIN I < 0.30 ng/mL (<=0.30)
[2017-02-01 09:19] LABS: CALCIUM 9.6 mg/dL (8.6-10.2); CHLORIDE 95 mEQ/L (98-107); HEMOLYSIS 0; POTASSIUM 4.2 mEQ/L (3.4-4.9); SODIUM 143 mEQ/L (135-145)
[2017-02-01 09:24] LABS: ANION GAP 7 (5-15)
[2017-02-01 09:30] LABS: CARBON DIOXIDE 41 mEQ/L (20-30)
[2017-02-01] MEDS: Metoprolol 25mg tab ORAL SCH ×2 (10:03→21:11)
[2017-02-01 11:33] LABS: ANISOCYTOSIS 1+; BAND NEUTROPHILS % (MANUAL) 0 % (0-8); BASOPHILS % (MANUAL) 0 % (0-2); EOSINOPHILS % (MANUAL) 0 % (0-3); HYPOCHROMASIA 1+; LYMPHOCYTES % (MANUAL) 5 % (20-45); NEUTROPHILS % (MANUAL) 93 % (45-75); PLATELET ESTIMATE ADEQUATE; PLATELET MORPHOLOGY NORMAL; TOTAL CELLS COUNTED 100
--- NOTE | 2017-02-01 12:29 | Diagnostic Imaging Report ---
Indication: Dyspnea Comparison: 01/31/2017 A single view chest radiograph was obtained. Findings: There is no change. Cardiomegaly is stable. There is an apparent fracture of the right humerus greater tuberosity. Please correlate clinically. Bones are osteopenic. Impression: No acute cardiopulmonary process or change identified in this regard. Apparent fracture of the right humeral neck. This is not adequately evaluated on the current study. Chest x-ray from 09/15/16 partially shows the humerus this injury may of been present at that time as well indicating this is an old fracture. However this is not for certain. Please correlate clinically and obtain further imaging as needed.
[2017-02-01] MEDS: ALPRAZolam 0.25mg tab ORAL SCH ×2 (14:11→21:11)
--- NOTE | 2017-02-01 15:59 | Diagnostic Imaging Report ---
Indication: Dyspnea Comparison: 09/15/16 A single view chest radiograph was obtained. Findings: The heart is enlarged. No obvious infiltrate identified. Dense calcified breast implants are noted bilaterally. The lungs are hyperexpanded. Bones are osteopenic. Impression: No acute disease identified. Limited evaluation of the lung bases due to breast implants. Suggestion of COPD
--- NOTE | 2017-02-01 19:42 | Cardiology Report ---
APPROVED REPORT EKG Measurement Heart [id number] [place] 142P79 [id number] Sinus rhythm with occasional premature ventricular complexes and premature atrial complexes Biatrial enlargement Anterior infarct, age undetermined Abnormal ECG
[2017-02-01] MEDS: Atorvastatin 20mg tab ORAL SCH (21:11)
[2017-02-02] MEDS: DuoNeb 0.5-3(2.5)mg/3ml neb HHN SCH ×6 (03:00→22:48)
[2017-02-02 03:51] VITALS: BP 110/70
[2017-02-02] MEDS: ALPRAZolam 0.25mg tab ORAL SCH ×5 (06:00→22:29)
[2017-02-02] MEDS: Solu-MEDROL 40mg Inj IVP SCH ×3 (06:17→22:29)
--- NOTE | 2017-02-02 06:45 | Consultation ---
DATE OF CONSULTATION: 02/01/2017 CARDIOLOGY CONSULTATION: CONSULTING PHYSICIAN: Jacky Gandara M.D. REQUESTING PHYSICIAN: Murali Madison M.D. REASON FOR CONSULTATION: Atrial tachyarrhythmia and elevated natriuretic-peptide assay. HISTORY OF PRESENT ILLNESS: This is a 72-year-old female with COPD, was admitted to the hospital yesterday with increasing cough, congestion, and shortness of breath. She is on chronic oxygen at home. She has been started on IV steroids, antimicrobials, and [id number]-[id number] nebulizers. I have been consulted to address her cardiac arrhythmias as well as elevated natriuretic-peptide assay. PAST MEDICAL HISTORY: COPD, history of aortic bypass surgery, and hypertension. SOCIAL HISTORY: Active smoker greater than 60 pack years. No alcohol or substance abuse. Advance directive DNR. FAMILY HISTORY: Noncontributory. CURRENT MEDICATIONS: Reviewed and reconciled. REVIEW OF SYSTEMS: No history of myocardial infarction, coronary artery disease. No complaints of chest pain. No leg swelling. No history of congestive heart failure. PHYSICAL EXAMINATION: GENERAL: Alert, in moderate respiratory distress. Monitored rhythm, sinus. There are episodes of frequent atrial ectopics and tachycardia. VITAL SIGNS: Blood pressure is 115/74, pulse rate 78, and respiratory rate 20. NECK: Jugular venous pressure is slightly elevated. Positive accessory muscle use. . LUNGS: Diminished breath sounds. Expiratory wheezes. HEART: Regular rhythm and rate. Normal S1 and S2. Rare ectopic beats. ABDOMEN: Soft. EXTREMITIES: Trace edema. DIAGNOSTIC DATA: Chest x-ray reveals no acute cardiopulmonary disease. LABORATORY DATA: Sodium is 143, potassium 4.2, bicarbonate 41, BUN 27, creatinine 1, and glucose 209. Pro-natriuretic peptide is 2691. IMPRESSION: 1. Chronic obstructive pulmonary disease exacerbation. 2. Hypoxia, chronic. 3. Chronic respiratory acidosis. 4. Compensatory metabolic alkalosis. 5. Elevated natriuretic-peptide assay likely reflux and chronic elevation of right atrial pressure. PLAN: 1. Empiric antimicrobials. 2. Inhaled bronchodilators. 3. Intravenous steroids. 4. No diuresis. 5. Add diltiazem at low doses for suppression of atrial-arrhythmias. 6. Agree with discontinuation of beta-juvenal in the setting of deep venous thrombosis prophylaxis. 7. Check thyroid panel and magnesium level. Jacky Juan Manuel Gandara DR: Becki JOB#: [id number] CC:
[2017-02-02 08:00] VITALS: BP 111/55
[2017-02-02] MEDS: Diltiazem CD 240mg cap ORAL SCH (09:13)
[2017-02-02] MEDS: Aspirin EC 81mg tab ORAL SCH (09:13)
[2017-02-02] MEDS: Metoprolol 25mg tab ORAL SCH ×2 (09:14→20:07)
--- NOTE | 2017-02-02 09:31 | Pulmonology Progress Note ---
Assessment/Plan Assessment/Plan 1. Chronic obstructive pulmonary disease exacerbation. 2. Pneumonia. 3. Respiratory failure 4. Bronchospasm. 5. Hypertension. 6. Depression. 7. A fib w RVR episodes of AF w RVR Seen by Dr Gandara, diltiazem rx ?? anticoagulate beta juvenal changed to metoprolol from atenolol DNR/DNI cont abx, O2, steroids, HHN using BiPAP for few minutes Subjective Constitutional: Denies: fever Respiratory: Reports: shortness of breath Allergies: Coded Allergies: PENICILLINS (Unverified Allergy, Intermediate, Hives, 08/05/15) Objective Last 24 Hour Vital Signs Date Time Temp Pulse Resp B/P (MAP) Pulse Ox O2 Delivery O2 Flow Rate FiO2 02/02/17 09:14 69 111/55 02/02/17 09:13 69 111/55 02/02/17 08:57 90 02/02/17 08:08 97.2 02/02/17 08:00 97.2 59 22 111/55 95 Nasal Cannula 3.0 02/02/17 06:43 Nasal Cannula 3.0 02/02/17 06:43 70 16 96 Nasal Cannula 3.0 02/02/17 04:00 75 02/02/17 03:51 97.6 74 20 110/70 98 Nasal Cannula 74 02/02/17 03:40 Nasal Cannula 3.0 32 02/02/17 03:40 Nasal Cannula 3.0 32 02/02/17 00:00 80 02/01/17 23:41 97.7 78 20 115/74 95 Nasal Cannula 78 02/01/17 23:11 32 02/01/17 23:11 77 16 98 Nasal Cannula 3.0 32 02/01/17 23:04 70 16 96 Nasal Cannula 3.0 32 02/01/17 21:11 74 114/61 02/01/17 20:00 76 02/01/17 19:38 97.7 74 19 114/61 Nasal Cannula 74 02/01/17 19:31 Nasal Cannula 3.0 32 02/01/17 19:31 Nasal Cannula 3.0 32 02/01/17 17:35 80 20 100 Nasal Cannula 3.0 32 02/01/17 17:30 79 18 100 Nasal Cannula 3.0 32 02/01/17 17:30 28 02/01/17 16:34 80 02/01/17 16:00 98.4 125 19 102/74 96 Nasal Cannula 3.0 02/01/17 15:24 Nasal Cannula 3.0 32 02/01/17 15:23 134 Nasal Cannula 3.0 32 02/01/17 12:02 98.2 82 20 146/79 98 Nasal Cannula 3.0 02/01/17 12:00 81 02/01/17 11:00 122 20 100 Nasal Cannula 3.0 32 02/01/17 11:00 28 02/01/17 11:00 118 18 100 Nasal Cannula 3.0 32 02/01/17 09:42 95 18 95 Nasal Cannula 3.0 97 02/01/17 09:40 93 18 97 Nasal Cannula 3.0 32 General Appearance: no acute distress HEENT: normocephalic Respiratory/Chest: lungs clear, no respiratory distress, decreased breath sounds Cardiovascular: normal rate, regular rhythm Current Medications Medications (Trade) Dose Ordered Sig/Sandeep Route PRN Reason Start Time Stop Time Status Last Admin Dose Admin Acetaminophen (Tylenol) 650 mg Q6H PRN ORAL Mild Pain/Temp > 100.5 02/01/17 07:30 03/03/17 07:29 02/02/17 07:09 Al Hydroxide/Mg Hydroxide (Mylanta) 30 ml TIDPRN PRN ORAL Abdominal cramps 02/01/17 14:30 03/03/17 14:29 02/01/17 14:41 Albuterol/ Ipratropium (DuoNeb 0.5-3(2.5)mg/3ml) 3 ml Q4HRT HHN 01/31/17 19:00 02/05/17 18:59 02/01/17 23:03 Alprazolam (Xanax) 0.25 mg Q8HR ORAL 02/01/17 14:00 02/08/17 13:59 02/02/17 09:11 Aspirin (Ecotrin) 81 mg DAILY ORAL 02/01/17 09:00 03/03/17 08:59 02/02/17 09:13 Atorvastatin Calcium (Lipitor) 20 mg BEDTIME ORAL 01/31/17 21:00 03/02/17 20:59 02/01/17 21:11 Clonidine HCl (Catapres) 0.1 mg Q4H PRN ORAL SBP>160 02/01/17 07:30 03/03/17 07:29 Diltiazem HCl (Cardizem CD) 240 mg DAILY ORAL 02/01/17 09:00 03/03/17 08:59 02/02/17 09:13 Diltiazem HCl (Cardizem) 30 mg EVERY 8 HOURS ORAL 02/02/17 06:00 03/04/17 05:59 UNV Lamotrigine (LaMICtal) 25 mg DAILY ORAL 02/01/17 09:00 03/03/17 08:59 02/02/17 09:14 Levofloxacin 150 ml @ 150 mls/hr QOD@1300 IVPB 02/02/17 13:00 02/07/17 12:59 Methylprednisolone Sodium Succinate (Solu-MEDROL) 40 mg EVERY 8 HOURS IVP 01/31/17 22:00 03/02/17 21:59 02/02/17 06:17 Metoprolol Tartrate (Lopressor) 25 mg Q12HR ORAL 02/01/17 09:30 03/03/17 09:29 02/02/17 09:14 Mirtazapine (Remeron) 15 mg BEDTIME ORAL 01/31/17 21:00 03/02/17 20:59 02/01/17 21:10 Pantoprazole (Protonix) 40 mg DAILY ORAL 02/02/17 09:00 03/04/17 08:59 02/02/17 09:13 Tiotropium [place] (Spiriva Inhaler) 1 puff DAILY INH 02/01/17 09:00 03/03/17 08:59 02/02/17 09:14 TARAN GILBERT Feb 02, 2017 09:31
[2017-02-02 12:00] VITALS: BP 135/65
--- NOTE | 2017-02-02 15:29 | Cardiology Report ---
APPROVED REPORT EXAM: Two-dimensional and M-mode echocardiogram with Doppler and color Doppler. INDICATION Congestive Heart Failure M-Mode DIMENSIONS IVSd1.3 (0.7-1.1cm)Left Atrium (MM)3.7 (1.6-4.0cm) LVDd4.4 (3.5-5.6cm)Aortic Root3.0 (2.0-3.7cm) PWd1.3 (0.7-1.1cm)Aortic Cusp Exc.1.6 (1.5-2.0cm) LVDs3.0 (2.5-4.0cm) PWs1.6 cm Normal left ventricular chamber size, systolic function and wall motion. Left ventricular ejection fraction estimated to be 55-60%. No evidence of left ventricular hypertrophy. No evidence of pericardial fat or effusion. All other cardiac chamber sizes are within normal limits. Focal aortic valve sclerosis with adequate cusp excursion Thickened mitral valve leaflets with normal excursion. Mitral annulus and aortic root calcification. Pulmonic valve is well visualized. Normal tricuspid valve structure. IVC is normal in size with minimal physiological collapse. RA pressure of 10mmHg. A color flow and spectral Doppler study was performed and revealed: Trace aortic regurgitation. Trace mitral regurgitation. Left ventricular diastolic dysfunction grade 1 Moderate tricuspid regurgitation. Tricuspid systolic velocities suggests peak right ventricular systolic pressure of 48 mmHg Consistent with moderate pulmonary hypertension. Pulmonic regurgitation present.
--- NOTE | 2017-02-02 15:35 | Cardiology Report ---
APPROVED REPORT EKG Measurement Heart [id number] SD 130P89 [id number] Sinus rhythm with premature atrial complexes Right atrial enlargement Rightward axis Pulmonary disease pattern Minimal voltage criteria for LVH, may be normal variant Abnormal ECG
[2017-02-02 16:00] VITALS: BP 124/73
[2017-02-02 20:00] VITALS: BP 140/88
[2017-02-02] MEDS: Atorvastatin 20mg tab ORAL SCH (20:07)
[2017-02-03] VITALS: BP 129/74
[2017-02-03] MEDS: DuoNeb 0.5-3(2.5)mg/3ml neb HHN SCH ×6 (02:41→23:17)
[2017-02-03 04:00] VITALS: BP 126/76
[2017-02-03] MEDS: ALPRAZolam 0.25mg tab ORAL SCH ×3 (05:05→22:11)
[2017-02-03] MEDS: Solu-MEDROL 40mg Inj IVP SCH ×3 (05:05→22:11)
--- NOTE | 2017-02-03 06:15 | Progress Note ---
DATE: 02/02/2017 CARDIOLOGY PROGRESS NOTE SUBJECTIVE: The patient was seen and evaluated. Son was at bedside. The patient notes slightly less shortness of breath today. Diagnostic studies included an echocardiogram revealing normal ejection fraction and [id number] pulmonary hypertension with PA systolic pressure 48 mmHg. OBJECTIVE: VITAL SIGNS: Blood pressure 111/55, pulse 69, and respirations 22. NECK: Supple. LUNGS: With diminished breath sounds and rhonchi. CARDIAC: Regular rhythm and rate. Normal S1 and S2. There is a 1/6 systolic murmur at the lower left sternal border. ABDOMEN: Soft. EXTREMITIES: No edema. IMPRESSION: 1. Chronic obstructive pulmonary disease exacerbation. 2. Acute bronchospasm. 3. Paroxysmal atrial fibrillation. 4. Pulmonary hypertension. PLAN: 1. Continue diltiazem. 2. Reassess beta-juvenal in view of chronic obstructive pulmonary disease. 3. No plan for anticoagulation due to risk benefit ratio as the patient's atrial fibrillation episodes are rare and associated with increased pulmonary arterial pressures. Jacky Gandara M.D. DR: BENIGNO JOB#: [id number] CC:
[2017-02-03 08:00] VITALS: BP 142/74
[2017-02-03] MEDS: Aspirin EC 81mg tab ORAL SCH (08:52)
[2017-02-03] MEDS: Diltiazem CD 180mg cap ORAL SCH ×2 (08:53→17:29)
[2017-02-03 12:00] VITALS: BP 131/82
[2017-02-03 16:00] VITALS: BP 118/76
[2017-02-03 20:00] VITALS: BP 118/69
[2017-02-03] MEDS: Atorvastatin 20mg tab ORAL SCH (21:02)
[2017-02-04] VITALS (7 sets, daily range): BP systolic 112–145; BP diastolic 52–82
[2017-02-04] MEDS: DuoNeb 0.5-3(2.5)mg/3ml neb HHN SCH ×6 (03:00→23:00)
--- NOTE | 2017-02-04 04:15 | Progress Note ---
DATE: 02/03/2017 CARDIOLOGY PROGRESS NOTE SUBJECTIVE: The patient remains in sinus rhythm with episodes of sinus tachycardia and frequent PACs. No atrial fibrillation has been noted for the past two days. The patient remains on diltiazem. Beta-blockers have been discontinued. Her shortness of breath and wheezing have decreased. The patient has minimal use of BiPAP. OBJECTIVE: VITAL SIGNS: Blood pressure 111/55, pulse 90, respiratory rate 22, afebrile, and oxygen saturation on 3 L is 95%. LUNGS: Diminished breath sounds. No wheezing. There is no accessory muscle use noted. CARDIAC: Regular rhythm and rate. Normal S1 and S2. ABDOMEN: Soft. EXTREMITIES: There is no edema. IMPRESSION: 1. Paroxysmal atrial fibrillation, precipitated by increased pulmonary artery systolic pressures, which in turn was due to chronic obstructive pulmonary disease exacerbation, now in sinus rhythm. 2. Nonsustained atrial ectopy. 3. Pneumonia. 4. Chronic obstructive pulmonary disease exacerbation. 5. Chronic hypoxia. 6. Paroxysmal bronchospasm. 7. Acute on chronic respiratory acidosis. 8. Hypertensive heart disease. 9. Increased fall risk. PLAN: Continue diltiazem. No plan for anticoagulation due to increased risk to benefit ratio. DNR/DNI, per advance directive. Home O2, bronchodilators, and steroids per field training agent. Jacky Gandara M.D. DR: Becki JOB#: [id number] CC:
[2017-02-04] MEDS: ALPRAZolam 0.25mg tab ORAL SCH ×3 (05:45→21:07)
[2017-02-04] MEDS: Solu-MEDROL 40mg Inj IVP SCH ×2 (05:46→15:24)
[2017-02-04] MEDS: Aspirin EC 81mg tab ORAL SCH (09:35)
[2017-02-04] MEDS: Diltiazem CD 180mg cap ORAL SCH ×2 (09:35→17:41)
--- NOTE | 2017-02-04 17:10 | Pulmonology Progress Note ---
Assessment/Plan Assessment/Plan 1. Chronic obstructive pulmonary disease exacerbation. 2. Pneumonia. 3. Respiratory failure 4. Bronchospasm. 5. Hypertension. 6. Depression. 7. A fib w RVR no episodes of AF w RVR On diltiazem rx no need for anticoagulation beta juvenal dc'd DNR/DNI cont O2, HHN oral steroids, abx dc planning to home w HH Subjective Constitutional: Denies: fever Respiratory: Reports: shortness of breath - better Allergies: Coded Allergies: PENICILLINS (Unverified Allergy, Intermediate, Hives, 08/05/15) Objective Last 24 Hour Vital Signs Date Time Temp Pulse Resp B/P (MAP) Pulse Ox O2 Delivery O2 Flow Rate FiO2 02/04/17 16:00 97.5 76 18 140/72 99 Nasal Cannula 76 02/04/17 15:32 84 02/04/17 15:21 72 20 100 Nasal Cannula 2.0 28 02/04/17 15:15 28 02/04/17 15:15 79 20 95 Nasal Cannula 2.0 02/04/17 12:03 97.9 74 24 112/52 94 Nasal Cannula 2.0 02/04/17 12:00 87 02/04/17 11:18 71 18 100 Nasal Cannula 2.0 28 02/04/17 11:14 28 02/04/17 11:08 72 18 95 Nasal Cannula 2.0 02/04/17 09:59 75 18 95 Nasal Cannula 2.0 02/04/17 09:58 75 16 95 Nasal Cannula 2.0 02/04/17 09:35 77 142/75 02/04/17 08:00 97.3 77 22 142/75 94 Nasal Cannula 2.0 02/04/17 08:00 75 02/04/17 07:35 Nasal Cannula 2.0 02/04/17 07:33 Nasal Cannula 2.0 02/04/17 07:32 Nasal Cannula 2.0 28 02/04/17 07:31 98 Nasal Cannula 2.0 28 02/04/17 04:00 98.1 82 20 133/64 94 Nasal Cannula 2.0 02/04/17 04:00 82 02/04/17 03:08 Nasal Cannula 2.0 28 02/04/17 03:08 77 18 96 Nasal Cannula 2.0 02/04/17 00:01 93 02/04/17 00:00 98.1 93 20 122/68 95 Nasal Cannula 2.0 02/03/17 23:26 87 18 100 Nasal Cannula 2.0 02/03/17 23:26 28 02/03/17 23:19 81 18 97 Nasal Cannula 2.0 02/03/17 20:01 90 18 98 Nasal Cannula 2.0 28 02/03/17 20:01 28 02/03/17 20:00 92 02/03/17 20:00 98.1 92 20 118/69 94 Nasal Cannula 2.0 02/03/17 19:58 91 18 94 Nasal Cannula 2.0 02/03/17 19:58 Nasal Cannula 2.0 02/03/17 19:57 94 Nasal Cannula 2.0 02/03/17 17:29 92 118/76 General Appearance: no acute distress Respiratory/Chest: lungs clear, decreased breath sounds Cardiovascular: normal rate Current Medications Medications (Trade) Dose Ordered Sig/Sandeep Route PRN Reason Start Time Stop Time Status Last Admin Dose Admin Acetaminophen (Tylenol) 650 mg Q6H PRN ORAL Mild Pain/Temp > 100.5 02/01/17 07:30 03/03/17 07:29 02/04/17 01:59 Al Hydroxide/Mg Hydroxide (Mylanta) 30 ml TIDPRN PRN ORAL Abdominal cramps 02/01/17 14:30 03/03/17 14:29 02/01/17 14:41 Albuterol/ Ipratropium (DuoNeb 0.5-3(2.5)mg/3ml) 3 ml Q4HRT HHN 01/31/17 19:00 02/05/17 18:59 02/04/17 15:15 Alprazolam (Xanax) 0.25 mg Q8HR ORAL 02/01/17 14:00 02/08/17 13:59 02/04/17 15:24 Aspirin (Ecotrin) 81 mg DAILY ORAL 02/01/17 09:00 03/03/17 08:59 02/04/17 09:35 Atorvastatin Calcium (Lipitor) 20 mg BEDTIME ORAL 01/31/17 21:00 03/02/17 20:59 02/03/17 21:02 Clonidine HCl (Catapres) 0.1 mg Q4H PRN ORAL SBP>160 02/01/17 07:30 03/03/17 07:29 Diltiazem HCl (Cardizem CD) 180 mg BID ORAL 02/03/17 09:00 03/05/17 08:59 02/04/17 09:35 Lamotrigine (LaMICtal) 25 mg DAILY ORAL 02/01/17 09:00 03/03/17 08:59 02/04/17 09:35 Levofloxacin 150 ml @ 150 mls/hr QOD@1300 IVPB 02/02/17 13:00 02/07/17 12:59 02/04/17 13:31 Methylprednisolone Sodium Succinate (Solu-MEDROL) 40 mg EVERY 8 HOURS IVP 01/31/17 22:00 03/02/17 21:59 02/04/17 15:24 Mirtazapine (Remeron) 15 mg BEDTIME ORAL 01/31/17 21:00 03/02/17 20:59 02/03/17 21:02 Ondansetron HCl (Zofran ODT) 4 mg Q4HR PRN ORAL Nausea & Vomiting 02/03/17 10:45 03/05/17 10:44 02/03/17 11:11 Pantoprazole (Protonix) 40 mg ACBREAKFAST ORAL 02/04/17 06:30 03/04/17 08:59 02/04/17 05:45 Tiotropium [place] (Spiriva Inhaler) 1 puff DAILY INH 02/01/17 09:00 03/03/17 08:59 02/04/17 09:56 TARAN GILBERT Feb 04, 2017 17:10
[2017-02-04] MEDS: Atorvastatin 20mg tab ORAL SCH (21:07)
[2017-02-04] MEDS: ALPRAZolam 0.5mg tab ORAL PRN (22:18)
[2017-02-05] MEDS: DuoNeb 0.5-3(2.5)mg/3ml neb HHN SCH ×4 (03:00→15:45)
[2017-02-05 04:00] VITALS: BP 138/75
--- NOTE | 2017-02-05 05:16 | Progress Note ---
DATE: 02/04/2017 CARDIOLOGY PROGRESS NOTE SUBJECTIVE: The patient remains in sinus rhythm. Less shortness of breath. OBJECTIVE: VITAL SIGNS: Blood pressure 112/52, pulse 74, and respiratory rate 24. LUNGS: Diminished breath sounds. No wheezing. HEART: Regular rhythm and rate. Normal S1 and S2 with a fourth heart sound. ABDOMEN: Soft. EXTREMITIES: No edema. LABORATORY DATA: Noted. IMPRESSION: 1. Chronic obstructive pulmonary disease exacerbation. 2. Pneumonia. 3. Acute respiratory failure. 4. Paroxysmal bronchospasm. 5. Hypertensive heart disease. 6. Paroxysmal atrial fibrillation with rapid ventricular response. 7. Chronic diastolic congestive heart failure. PLAN: 1. Continue diltiazem. 2. No anticoagulation in view of fall risk. 3. Inhaled bronchodilators. 4. Antimicrobials. 5. Steroid taper. 6. Continue current antihypertensive regimen. 7. Avoid tighter blood pressure control due to orthostatic risk. Jacky Gandara M.D. DR: ARNOLDO JOB#: [id number] CC:
[2017-02-05] MEDS: ALPRAZolam 0.25mg tab ORAL SCH ×3 (06:10→22:03)
[2017-02-05 08:00] VITALS: BP 143/70
[2017-02-05] MEDS: Diltiazem CD 180mg cap ORAL SCH ×2 (08:44→18:46)
[2017-02-05] MEDS: PredniSONE 20mg tab ORAL SCH (08:44)
[2017-02-05] MEDS: Aspirin EC 81mg tab ORAL SCH (08:44)
[2017-02-05 12:00] VITALS: BP 154/71
--- NOTE | 2017-02-05 14:11 | Pulmonology Progress Note ---
Assessment/Plan Assessment/Plan 1. Chronic obstructive pulmonary disease exacerbation. 2. Pneumonia. 3. Respiratory failure 4. Bronchospasm. 5. Hypertension. 6. Depression. 7. A fib w RVR no episodes of AF On diltiazem rx no anticoagulation due to fall risk no beta juvenal due to COPD DNR/DNI cont O2, HHN oral steroids, abx dc planning to home w HH in AM disc w RN, son Subjective Respiratory: Reports: shortness of breath - better Allergies: Coded Allergies: PENICILLINS (Unverified Allergy, Intermediate, Hives, 08/05/15) Objective Last 24 Hour Vital Signs Date Time Temp Pulse Resp B/P (MAP) Pulse Ox O2 Delivery O2 Flow Rate FiO2 02/05/17 12:02 Nasal Cannula 2.0 02/05/17 12:01 Nasal Cannula 2.0 02/05/17 11:50 80 02/05/17 09:49 Nasal Cannula 2.0 02/05/17 09:49 74 16 97 Nasal Cannula 2.0 02/05/17 08:44 85 143/70 02/05/17 08:00 97.5 85 24 143/70 97 Nasal Cannula 02/05/17 07:47 85 02/05/17 07:09 Nasal Cannula 2.0 02/05/17 07:09 Nasal Cannula 2.0 02/05/17 07:09 74 15 97 Nasal Cannula 2.0 02/05/17 07:09 97 Nasal Cannula 2.0 02/05/17 04:00 97.9 82 18 138/75 97 Nasal Cannula 90 02/05/17 04:00 81 02/05/17 03:16 Nasal Cannula 02/05/17 03:16 Nasal Cannula 02/05/17 00:00 91 02/04/17 23:46 98.1 79 18 134/73 97 Nasal Cannula 90 02/04/17 23:17 98.1 02/04/17 23:00 Nasal Cannula 02/04/17 23:00 Nasal Cannula 02/04/17 20:26 95 02/04/17 20:00 98.5 92 18 145/82 99 Nasal Cannula 90 02/04/17 19:19 84 18 96 Nasal Cannula 2.0 28 02/04/17 19:09 28 02/04/17 19:08 95 Nasal Cannula 2.0 28 02/04/17 19:08 80 20 95 Nasal Cannula 2.0 28 02/04/17 19:08 Nasal Cannula 2.0 28 02/04/17 17:41 76 140/72 02/04/17 16:00 97.5 76 18 140/72 99 Nasal Cannula 76 02/04/17 15:32 84 02/04/17 15:21 72 20 100 Nasal Cannula 2.0 28 02/04/17 15:15 28 02/04/17 15:15 79 20 95 Nasal Cannula 2.0 Intake and Output 02/05/17 02/06/17 19:00 07:00 Output Total 313 ml Balance -313 ml Output Urine Total 313 ml # Voids 1 # Bowel Movements 1 General Appearance: no acute distress Respiratory/Chest: lungs clear, decreased breath sounds Cardiovascular: normal rate Current Medications Medications (Trade) Dose Ordered Sig/Sandeep Route PRN Reason Start Time Stop Time Status Last Admin Dose Admin Acetaminophen (Tylenol) 650 mg Q6H PRN ORAL Mild Pain/Temp > 100.5 02/01/17 07:30 03/03/17 07:29 02/04/17 22:18 Al Hydroxide/Mg Hydroxide (Mylanta) 30 ml TIDPRN PRN ORAL Abdominal cramps 02/01/17 14:30 03/03/17 14:29 02/01/17 14:41 Albuterol/ Ipratropium (DuoNeb 0.5-3(2.5)mg/3ml) 3 ml Q4HRT HHN 01/31/17 19:00 02/05/17 18:59 02/04/17 19:08 Alprazolam (Xanax) 0.25 mg Q8HR ORAL 02/01/17 14:00 02/08/17 13:59 02/05/17 06:10 Alprazolam (Xanax) 0.5 mg HSPRN PRN ORAL For Anxiety 02/04/17 19:45 02/11/17 19:44 02/04/17 22:18 Aspirin (Ecotrin) 81 mg DAILY ORAL 02/01/17 09:00 03/03/17 08:59 02/05/17 08:44 Atorvastatin Calcium (Lipitor) 20 mg BEDTIME ORAL 01/31/17 21:00 03/02/17 20:59 02/04/17 21:07 Clonidine HCl (Catapres) 0.1 mg Q4H PRN ORAL SBP>160 02/01/17 07:30 03/03/17 07:29 Diltiazem HCl (Cardizem CD) 180 mg BID ORAL 02/03/17 09:00 03/05/17 08:59 02/05/17 08:44 Lamotrigine (LaMICtal) 25 mg DAILY ORAL 02/01/17 09:00 03/03/17 08:59 02/05/17 08:44 Levofloxacin (Levaquin) 750 mg QOD@1300 ORAL 02/06/17 13:00 02/13/17 12:59 Mirtazapine (Remeron) 15 mg BEDTIME ORAL 01/31/17 21:00 03/02/17 20:59 02/04/17 21:07 Ondansetron HCl (Zofran ODT) 4 mg Q4HR PRN ORAL Nausea & Vomiting 02/03/17 10:45 03/05/17 10:44 02/03/17 11:11 Pantoprazole (Protonix) 40 mg ACBREAKFAST ORAL 02/04/17 06:30 03/04/17 08:59 02/05/17 06:10 Prednisone (predniSONE) 40 mg DAILY ORAL 02/05/17 09:00 03/07/17 08:59 02/05/17 08:44 Tiotropium [place] (Spiriva Inhaler) 1 puff DAILY INH 02/01/17 09:00 03/03/17 08:59 02/04/17 09:56 TARAN GILBERT Feb 05, 2017 14:11
[2017-02-05] MEDS ORDERED: PREDNISONE20 MG ORAL (14:14)
[2017-02-05] MEDS ORDERED: LEVAQUIN250 M1 ORAL (14:14)
[2017-02-05] MEDS ORDERED: ADVAIR 500-501 EACH INH (14:14)
[2017-02-05] MEDS ORDERED: DILTIAZEM 24HR180 M3 ORAL (14:16)
[2017-02-05 16:00] VITALS: BP 144/63
[2017-02-05 20:00] VITALS: BP 153/74
[2017-02-05] MEDS: Atorvastatin 20mg tab ORAL SCH (20:05)
[2017-02-05] MEDS: ALPRAZolam 0.5mg tab ORAL PRN (23:21)
[2017-02-05 23:25] VITALS: BP 154/66
--- NOTE | 2017-02-05 23:30 | Progress Note ---
DATE: 02/05/2017 CARDIOLOGY PROGRESS NOTE SUBJECTIVE: The patient has less shortness of breath. Blood pressure 143/70, pulse 85, and respiratory rate 16 to 24. She is very rarely on BiPAP. She continues on inhaled bronchodilators. Monitored rhythm is sinus with no recurring atrial fibrillation. OBJECTIVE: LUNGS: Diminished breath sounds. No wheezing. HEART: Regular rhythm and rate. Normal S1 and S2 with a fourth heart sound. ABDOMEN: Soft. No edema. IMPRESSION: 1. Chronic obstructive pulmonary disease exacerbation. 2. Acute bronchospasm. 3. Pneumonia. 4. Hypertensive heart disease. 5. Chronic diastolic congestive heart failure. 6. Paroxysmal atrial fibrillation, now in sinus rhythm. PLAN: 1. No plan for anticoagulation due to decreased risk to benefit ratio. 2. Continue diltiazem for suppression of atrial ectopy. 3. Steroid taper. 4. Inhaled bronchodilators. 5. No additional cardiovascular therapy presently planned. Jacky Gandara M.D. DR: Blake JOB#: [id number] CC:
[2017-02-06 03:40] VITALS: BP 156/88
[2017-02-06] MEDS: ALPRAZolam 0.25mg tab ORAL SCH (06:07)
[2017-02-06 08:00] VITALS: BP 162/74
[2017-02-06] MEDS: Aspirin EC 81mg tab ORAL SCH (09:02)
[2017-02-06] MEDS: PredniSONE 20mg tab ORAL SCH (09:02)
[2017-02-06] MEDS: Diltiazem CD 180mg cap ORAL SCH (09:02)
[2017-02-06 11:17] VITALS: BP 144/72
--- NOTE | 2017-02-08 18:24 | Discharge Summary ---
Discharge Summary Hospital Course Date of Admission Jan 31, 2017 at 14:45 Date of Discharge Feb 06, 2017 at 11:36 Admitting Diagnosis copd exacerbation HPI Mandy Jung is a 72 year old female who was admitted on Jan 31, 2017 at 14: 45 for Chronic Obstructive Pulmonary Disease Exacerbation Hospital Course dc summary #[id number] Discharge Medications New Medications: Fluticasone/Salmeterol (Advair 500-50 Diskus) 1 Each Blst.w.dev 1 PUFF INH EVERY 12 HOURS, #1 EA Diltiazem HCl (Diltiazem 24HR Cd) 180 Mg Cap.er.24h 180 MG ORAL BID, #60 CAP Levofloxacin* (Levaquin*) 250 Mg Tablet 750 MG ORAL QOD@1300, #4 TAB Prednisone* (Prednisone*) 20 Mg Tablet 20 MG ORAL DAILY, #20 TAB Continued Medications: Aspirin* (Aspir 81*) 81 Mg Tablet.dr 81 MG ORAL DAILY, TAB Atorvastatin Calcium* (Atorvastatin Calcium*) 20 Mg Tablet 20 MG ORAL BEDTIME, TAB Lamotrigine (Lamotrigine) 25 Mg Tab.er.24 25 MG PO DAILY, TAB Lamotrigine* (Lamictal*) 25 Mg Tablet 25 MG ORAL DAILY, #30 TAB 0 Refills Mirtazapine* (Mirtazapine*) 15 Mg Tablet 15 MG ORAL BEDTIME, TAB Tiotropium [place]* (Spiriva*) 18 Mcg Cap.w.dev 1 PUFF INH DAILY, EA Discontinued Medications: Diltiazem Hcl* (Cardizem Cd*) 240 Mg Cap.er.24h 240 MG ORAL DAILY, #30 CAP 0 Refills Discharge Condition Upon Discharge: stable Discharge Disposition Patient was discharged to Home with Home [facility]() Discharge Diagnoses: Discharge Instructions Discharge Instructions Special Instructions I have been assigned to complete a D/C Summary on this account. I was not involved in the patient management Tracie Luque NP ([place]) Feb 08, 2017 18:24
--- NOTE | 2017-02-08 21:45 | Discharge Summary 2 SIG ---
DATE OF ADMISSION: 01/31/2017 DATE OF DISCHARGE: 02/06/2017 REASON FOR ADMISSION: 72-year-old female with a known history of COPD, smoker, presented to emergency room with shortness of breath and productive cough. She denied chest pain. She had home O2 , which she uses 24 hours a day. She tried home nebulizer with minimal relief. No recent steroid use. The patient denied fever, chills, sick contacts, and recent travel. The patient denied prior history of ICU admission or intubation as well as history of PE and DVT. No recent surgery, prolonged immobilization, or use of hormonal therapy. The patient was diagnosed with acute COPD exacerbation and pneumonia, placed on BiPAP and admitted for further management. ADMITTING DIAGNOSES: 1. Chronic obstructive pulmonary disease exacerbation. 2. Pneumonia. 3. Acute respiratory failure, initially requiring BiPAP. 4. Hypertension. 5. Depression. HOSPITAL STAY: The patient was admitted. Cardiology consult was requested. The patient started on supplemental oxygen to keep saturation above 92%. Pulmonary toilet provided as needed. Initially patient was on BiPAP, was able to be weaned from the BiPAP. She downgraded to oxygen via nasal cannula, and used BiPAP only at night time and as needed. The patient was started on empiric antibiotics and IV steroids. IV steroids were tapered down . Aspiration precautions were maintained. Unable to collect sputum specimen since cough was nonproductive. Bronchodilator therapy was provided. Follow up CXR with some improvement. Blood pressure was managed with current regimen. The patient exhibited evidence of atrial fibrillation with rapid ventricular response. Cardiology consult was requested. Echocardiogram revealed ejection fracture of 60% and right ventricular systolic pressure of 48 consistent with moderate pulmonary hypertension as well as evidence of moderate tricuspid regurgitation. Cardiology started the patient on Cardizem for rate control. No beta-juvenal due to the bronchospasm. No anticoagulation given the patient increased risk to benefit ratio. The patient was converted spontaneously to sinus rhythm. Continue at home aspirin and statin along with Cardizem. The patient was stable for discharge. The patient DNR and DNI status. Home health services were arranged. DISCHARGE DIAGNOSES: 1. Acute chronic obstructive pulmonary disease exacerbation. 2. Pneumonia. 3. Acute bronchospasm. 4. Acute respiratory failure, requiring BiPAP. 5. Hypertensive heart disease. 6. Depression. 7. Paroxysmal atrial fibrillation with rapid ventricular response, converted to sinus rhythm. 8. Chronic diastolic congestive heart failure. DISCHARGE MEDICATIONS: See medication reconciliation list. Continue maintenance inhalers ( Advair and Spiriva), oral steroids (with tapering), empiric antibiotics. Scripts provided, Continue home medications, but no beta juvenal, continue Cardizem. DISCHARGE INSTRUCTIONS: The patient was discharged home with home health services. FOLLOWUP: Followup with the primary medical doctor. Murali Madison M.D. I have been assigned to dictate discharge summary on this account and I was not involved in the patient's management. Tracie Luque ([facility] N.P. DR: TAHIR JOB#: [id number] CC: AMPARO
== END 2017-02-06 11:36 | disposition home health service (06) | DRG 190 ==
LOC: EDBD 12:22 → EMR 12:44 → EDBEDREQ 13:55 → EDBEDREQSVC 13:55 → EDBEDREQ 14:38 → 2W 14:45 → EDBEDREQ 14:46 → 2W 16:54
DX: J44.0 Chronic obstructive pulmonary disease with (acute) lower respiratory infection (principal); J18.9 Pneumonia, unspecified organism; J96.01 Acute respiratory failure with hypoxia; E87.3 Alkalosis; I11.0 Hypertensive heart disease with heart failure; I50.32 Chronic diastolic (congestive) heart failure; Z99.81 Dependence on supplemental oxygen; J44.1 Chronic obstructive pulmonary disease with (acute) exacerbation; F32.9 Major depressive disorder, single episode, unspecified; F41.9 Anxiety disorder, unspecified; I25.10 Atherosclerotic heart disease of native coronary artery without angina pectoris; Z95.1 Presence of aortocoronary bypass graft; I48.0 Paroxysmal atrial fibrillation
CPT/HCPCS: 36415; 36600; 71010; 80048; 80053; 82550; 82553; 82803; 83880; 84484; 85007; 85025; 93005; 93306; 94640; 94660; 94760; 99285; J7620